=== PATIENT | male | born 1980 | race Caucasian/White ===

== ENCOUNTER → 2023-08-24 08:06 | Outpatient (REF) | payer BC, SELFPAY | LOC: HWEVLT 08:06 | PROVIDERS: ATTENDING PHYSICIAN Radiology Vascular & Interventional Radiology | DX: I83.892 Varicose veins of left lower extremity with other complications (principal) | CPT/HCPCS: 93970 ==

== ENCOUNTER 2024-09-07 19:51 | Emergency (ER) | payer BC, SELFPAY ==
[2024-09-07 19:53] VITALS: BP 130/89
[2024-09-07 20:11] VITALS: BMI 23.5
--- NOTE | 2024-09-07 20:15 | EDRN ---
For 2 weeks, pt has had increased swelling in his abdomen. Pt says nothing affects the swelling - BMs, eating, drinking, urinating. Pt says at times it is very uncomfortable 'everything is pushing, I don't know why.' No change in diet and pt's
weight is the same. Last BM this morning and was normal, no diarrhea. Pt has taken Gas-X and Mylanta which did not help. No cp, sob, n/v, fever/chills/cough, urinary symptoms. Pt had lab work and urinalysis done last week for this complaint and
says everything was normal.
[2024-09-07 20:33] LABS: % Basophils 0.7 % (0-2); % Eosinophils 5.3 % (0-6); % Immature Granulocytes 0.1 % (0-0.5); % Lymphocytes 46.4 % (20.5-51.1); % Monocytes 9.3 % (1.7-9.3); % Neutrophils 38.2 % (42.2-75.2); Absolute Basophils 0.1 10^3/uL (0-0.2); Absolute Eosinophils 0.4 10^3/uL (0-0.7); Absolute Lymphocytes 3.1 10^3/uL (1.2-3.4); Absolute Monocytes 0.6 10^3/uL (0.1-0.6); Absolute Neutrophils 2.6 10^3/uL (1.4-6.5); Hematocrit 41.5 % (39.0-52.0); Hemoglobin 14.5 g/dL (13.0-18.0); Mean Corp Hgb Conc. 34.9 g/dL (33.0-37.0); Mean Corpuscular Hgb 33.8 pg (27.0-31.0); Mean Corpuscular Volume 96.7 fL (80.0-94.0); Mean Platelet Volume 9.1 fL (7.4-10.4); Nucleated Red Blood Cells % 0 % (-); Platelet Count 334 10^3/uL (130-400); Red Blood Cell Count 4.29 10^6/uL (4.70-6.10); Red Cell Dist. Width 13.5 % (11.5-14.5); White Blood Cell Count 6.8 10^3/uL (4.8-10.8)
[2024-09-07 20:37] LABS: Urine Albumin Negative (Neg - Trace); Urine Bilirubin Negative (Negative); Urine Character Clear (Clear); Urine Color Yellow; Urine Glucose Negative (Negative); Urine Ketone Negative (Negative); Urine Leukocyte Negative (Negative); Urine Nitrite Negative (Negative); Urine Occult Blood Negative (Negative); Urine Urobilinogen Negative (Neg - 1+)
--- NOTE | 2024-09-07 20:46 | ED.GENMED ---
History of Present Illness
General
Chief Complaint: Abdominal Pain
Time Seen by Provider: 09/07/24 20:15
History of Present Illness
History of Present Illness:
Patient presents to the emergency department with abdominal discomfort and distention. Symptoms have been ongoing for the past 1 to 2 weeks. Symptoms are constant and not made worse with food. No nausea vomiting diarrhea or constipation. No
urinary symptoms. States he has a GI doctor and history of peptic ulcer disease. He is on Protonix daily. he is scheduled to have endoscopy next week.
Past History
Past History
ED Past Medical History: Asthma and GERD
ED Past Surgical History: None
Social History
Tobacco: Non-smoker
Employment: Employed
Phy Exam
Physical Exam
Physical Exam:
GENERAL APPEARANCE: NAD, well developed/ well nourished
EYES lids/conjunctiva normal
EARS/NOSE/THROAT Mucous membranes moist, uvula midline without oral pharyngeal erythema, exudate or swelling
HEAD/NECK normocephalic atraumatic, neck is supple.
RESPIRATORY respiratory effort normal, speaks in full sentences, no accessory muscle use. Lungs clear to auscultation without rhonchi, wheezes, rales
CARDIAC Regular rate and rhythm, no edema.
ABDOMINAL Soft, ND/NT. No pulsatile masses on exam, rebound tenderness, Smith sign or pain over Mcburney's point.
MUSCLES/EXTREMITIES No abnormal range of motion, no swelling.
SKIN Warm, pink and dry. No rashes
NEUROLOGICAL Speech is clear and appropriate. Normal level of consciousness. 5/5 strength in all extremities.
PSYCH Normal mood and affect. Judgement/competence is appropriate
Course
Orders/Labs/Results
Orders:
Orders
09/07/24 20:09
IV Insert/Care/Rem.- Treatment PRN
09/07/24 20:24
Complete Blood Count/With Diff Urgent
Comprehensive Metabolic Panel Urgent
Lipase Urgent
09/07/24 20:32
Urinalysis Reflex To Culture Urgent
Date Specimen was Collected: 09/07/24
Time Specimen was Collected: 20:28
09/07/24 20:45
CT Abd/pelvis W Iv Cont Urgent
Comment:
Reason For Exam: abdominal pain and distension
Abnormal Lab Results
09/07/24
20:24
RBC 4.29 L 10^6/uL
(4.70-6.10)
MCV 96.7 H fL
(80.0-94.0)
MCH 33.8 H pg
(27.0-31.0)
Neutrophils % 38.2 L %
(42.2-75.2)
BUN 25 H mg/dl
(9-20)
Lipase 358 H U/L
(23-300)
09/07/24 20:24
09/07/24 20:24
Vital Signs
Initial and Last Documented VS:
Initial Vital Signs
Temp Pulse Resp BP Pulse Ox
97.7 F 66 18 130/89 100
09/07/24 19:53 09/07/24 19:53 09/07/24 19:53 09/07/24 19:53 09/07/24 19:53
Last Documented Vital Signs
Temp Pulse Resp BP Pulse Ox
97.7 F 80 20 118/78 100
09/07/24 19:53 09/07/24 21:35 09/07/24 21:35 09/07/24 21:35 09/07/24 21:35
*Critical Care Note
Total Time (30-74mins, 75-104mins- exclusive of procedures): Not Applicable
ED Attending Note
ED Attending Note
ED Attending Note:
Discussed patient's CT findings with him and his activity coordinator. I will send in Augmentin for the possible enteritis though suspect his symptoms are primarily coming from the constipation. Follow-up with them this week.
-
Portions of this chart may have been created with voice recognition software.� Occasional wrong word or��sound alike� substitutions may have occurred due to the inherent limitations of voice recognition software.
Discharge Plan
Departure
Patient Disposition: Home (Routine Discharge)
Date of Disposition: 09/07/24
Time of Disposition: 21:58
Patient with high blood pressure during this ER visit?: No
Discharge Problem:
Constipation, Enteritis
Instructions: Constipation in adults
Prescriptions:
New
amoxicillin-pot clavulanate 875-125 mg tablet
1 tab PO Q12H Qty: 14 0RF
No Action
alprazolam 1 MG tablet
1 mg PO BIDPRN PRN (Reason: anxiety)
clonazepam 1 MG tablet
1 mg PO BIDPRN PRN (Reason: anxiety)
magnesium oxide [MgO] 400 MG tablet
400 mg PO DAILY
pantoprazole 40 MG tablet,delayed release (DR/EC)
40 mg PO BID
pseudoephedrine HCl [Sudogest] 30 MG tablet
30 mg PO DAILYPRN PRN (Reason: congestion)
albuterol sulfate 1 PUFF HFA aerosol inhaler
1 puff inhalation R Q4HPRN PRN (Reason: SOB)
lamotrigine 100 MG tablet
100 mg PO DAILY
finasteride 5 MG tablet
1.25 mg PO DAILY
loratadine 10 MG tablet
10 mg PO DAILY
fish oil-dha-epa 1 EACH capsule
1 cap PO DAILY
hydrocortisone 2.5 % Cream
1 applic TOPICAL BID PRN (Reason: exczema)
Quviviq 50 mg Tablet
50 mg PO HS
Referrals:
Dell Trejo MD [Family Provider, Internal Medicine]
Activity Restrictions/Additional Instructions:
antibiotics as prescribed
Miralax for constipation
you can try an enema which will help as well
return to ER with fevers or severe abdominal pain
Interventions
Interventions:
*Risk Screen - Suicide Last Done: 09/07/24 19:53
*General Assessment Last Done: 09/07/24 19:53
*Neglect/Abuse Screening Last Done: 09/07/24 19:53
*ED- Fall Risk Assessment Last Done: 09/07/24 20:35
*Nursing Disposition Last Done: 09/07/24 22:09
IS-Glkxjn-Afnkvveqeo Assessment Last Done: 09/07/24 20:25
Discharge Date and Time
Discharge Date/Time: 09/07/24 22:09
Print Language: BULGARIAN
[2024-09-07 20:47] LABS: ALT (SGPT) 27 U/L (0-50); AST (SGOT) 38 U/L (17-59); Albumin 4.5 g/dl (3.5-5.0); Alkaline Phosphatase 40 U/L (38-126); Blood Urea Nitrogen 25 mg/dl (9-20); Calcium 9.7 mg/dl (8.4-10.2); Carbon Dioxide 28 mmol/L (22-30); Chloride 107 mmol/L (98-107); Estimated Creatinine Clearance 114 ml/min; Glucose 93 mg/dl (70-99); Lipase 358 U/L (23-300); Potassium 4.1 mmol/L (3.5-5.1); Sodium 142 mmol/L (135-145); Total Bilirubin 0.4 mg/dl (0.2-1.3); Total Protein 6.8 g/dl (6.3-8.2); eGFR > 60.00
[2024-09-07 21:35] VITALS: BP 118/78
== END 2024-09-07 22:09 | disposition home or self-care (01) ==
LOC: EMR 19:51
PROVIDERS: EMERGENCY PHYSICIAN Emergency Medicine; FAMILY PHYSICIAN Internal Medicine
DX: K59.00 Constipation, unspecified (principal); K52.9 Noninfective gastroenteritis and colitis, unspecified; J45.909 Unspecified asthma, uncomplicated; Z87.11 Personal history of peptic ulcer disease; Z79.899 Other long term (current) drug therapy
CPT/HCPCS: 99284; 74177; 80053; 81003; 83690; 85025; Q9967